=== PATIENT | female | born 1965 | race African-American/Black ===

== ENCOUNTER 2020-06-16 15:00 | Emergency (ER) | payer OTHER ==
[~2020-06-16] VITALS: Ht 175.3 cm; Wt 113.4 kg
[2020-06-16 15:17] VITALS: BP 114/76; Ht 175.3 cm; Wt 113.4 kg
== END 2020-06-16 17:19 | disposition home or self-care (01) ==
LOC: ED 15:00
DX: M19.071 Primary osteoarthritis, right ankle and foot (principal); M79.671 Pain in right foot; Z90.49 Acquired absence of other specified parts of digestive tract; Z90.710 Acquired absence of both cervix and uterus
CPT/HCPCS: J1100; J1885; Q0092

== ENCOUNTER 2020-07-13 10:18 | Emergency (ER) | payer OTHER ==
[2020-07-13 13:11] VITALS: BP 122/66
== END 2020-07-13 13:11 | disposition home or self-care (01) ==
LOC: ED 10:18
DX: S42.401A Unspecified fracture of lower end of right humerus, initial encounter for closed fracture (principal); M25.522 Pain in left elbow; M25.512 Pain in left shoulder; M25.561 Pain in right knee; M25.562 Pain in left knee; R22.41 Localized swelling, mass and lump, right lower limb; W01.0XXA Fall on same level from slipping, tripping and stumbling without subsequent striking against object, initial encounter; Y93.01 Activity, walking, marching and hiking; Y92.89 Other specified places as the place of occurrence of the external cause; Y99.8 Other external cause status